=== PATIENT | female | born 1965 | race Caucasian/White ===

== ENCOUNTER 2018-06-21 06:55 | Inpatient (IN) | payer OTHER ==
[2018-06-09 08:55] LABS: HEMATOCRIT 38.8 % (37.0-47.0); HEMOGLOBIN 12.8 gm/dL (12.0-15.0); MCH 29.8 pg (26.0-34.0); MCV 90.3 fL (80.0-100.0); MPV 9.1 fl. (7.2-11.1); RBC 4.3 mil/uL (4.20-5.00); WBC 3.3 thou/uL (4.0-11.0)
[2018-06-09 09:32] LABS: ALBUMIN 3.7 g/dL (3.4-5.0); CALCIUM 8.9 mg/dL (8.5-10.1); CREATININE 0.8 mg/dL (0.6-1.3); POTASSIUM 4.3 mmol/L (3.5-5.1); TOTAL BILIRUBIN 0.3 mg/dL (<0.1-1.0); TOTAL PROTEIN 6.7 g/dL (6.4-8.2)
[2018-06-09 09:42] LABS: URINE CLARITY CLEAR; URINE COLOR YELLOW
[2018-06-09 09:43] LABS: URINE GLUCOSE-RANDOM NEG (Negative); URINE PROTEIN NEG (Negative); URINE SPECIFIC GRAVITY > 1.030 (1.005-1.030)
[2018-06-09 09:44] LABS: URINE BILIRUBIN NEG (Negative); URINE BLOOD NEG (Negative); URINE KETONES NEG (Negative); URINE NITRITE-REFLEX NEGATIVE (Negative); URINE UROBILINOGEN 0.2 E.U./dl (0.2-1.0)
[2018-06-09 09:45] LABS: URINE LEUKOCYTES-REFLEX NEGATIVE (Negative)
[2018-06-09 10:16] LABS: PROTIME 10.7 Seconds (9.20-11.50)
--- NOTE | 2018-06-09 17:03 | EKG ---
[place] [address] ELECTROCARDIOGRAM REPORT Name: BRANDY HAYDEN Room: [facility] IN [facility]#: [id number] Admission: Attend Phys: Pawan Cleaning II Discharge: Date of : 67 Report #: [id number] THIS REPORT FOR: //name// [facility] Test Date: 2018-06-09 Test Time: 09:17:45 Pat Name: BRANDY HAYDEN Department: Room: Gender: F [employer] Utility Worker: : 1965 Requested By: Pawan Cleaning Order Number: [id number] Reading MD: Martinez De Anda Measurements Intervals [place] Rate: P: [place]: QRS: QRSD: T: QT: QTc: Interpretive Statements Normal sinus rhythm Low voltage recorded leads Nonspecific T-wave inversion anterior leads Abnormal EKG No previous ECG available for comparison Electronically Signed On 06-09-2018 17:03:42 CDT by Martinez De Anda [email or web address] <ELECTRONICALLY SIGNED> By: Martinez De Anda MD, [facility] 06/09/18 1703 0917 6 Martinez De Anda MD, FACC /EPI
[~2018-06-21] VITALS: Ht 162.6 cm; Wt 113.4 kg
--- NOTE | ~2018-06-21 | OP ---
[facility] [address] [place] [address] OPERATIVE REPORT Name: BRANDY HAYDEN Room: [address] IN [facility]#: [id number] Admission: 06/21/18 Attend Phys: Ginny Szymanski Discharge: 06/23/18 Date of : 67 Report #: [id number] THIS REPORT FOR: //name// CC: Physician staff DENISE Beltran DATE OF SERVICE: 06/21/2018 PREOPERATIVE DIAGNOSIS: Right knee osteoarthritis. POSTOPERATIVE DIAGNOSIS: Right knee osteoarthritis. PROCEDURE: Right total knee arthroplasty with Navio. ANESTHESIA: General endotracheal. ESTIMATED BLOOD LOSS: 50 mL. SURGEON: Pawan Cleaning II, DO. [employer] SUPERVISOR: ANSELMO Elder DRAINS: Medium Hemovac. COMPLICATIONS: None. CONDITION: The patient stable to recovery room. IMPLANTS: Listed in the operative record and progress note. BRIEF HISTORY: The patient was seen in the preoperative area. Preoperative H and P was performed. Site was marked, questions were answered. Risks and benefits were discussed with the patient in detail about surgery. The patient wished to proceed assuming all risks. OPERATIVE PROCEDURE: The patient was taken to the operative suite, placed supine on the operative table and given appropriate anesthesia. A well-padded tourniquet was applied to the upper thigh, which was inflated to 300 mmHg after gravity exsanguination. The operative knee was sterilely prepped and draped. Surgery began by a midline incision. This was carried down to the subcutaneous tissues. A medial parapatellar arthrotomy was performed and carried down to bone. The patella was then everted and excess soft tissue removed from around the femur. Excess osteophytes were removed. The Navio tracker guides were then placed in the femur and tibia and registered through the [place] [address] OPERATIVE REPORT Name: BRANDY HAYDEN Macario Room: [address]#: [id number] Admission: 06/21/18 Attend Phys: Ginny Szymanski Discharge: 06/23/18 Date of : 67 Report #: [id number] robotic cutting guide was then activated and appropriate drill holes were placed on the femur and tibia. The femoral cutting block was then applied and checked for appropriate cut. The distal cut was made. The 4-in-1 cutting block was then applied, checked for appropriate cut and appropriate cut was made. This excess bone was removed. The tibia was then exposed. Excess meniscus was removed. Retractor was placed on collateral ligaments. The tibial cutting block was then applied and checked with the Akanooio robotic for appropriate alignment and appropriate cut was made. Tibial base plate was then applied, checked for rotational alignment with the drop ro and pinned into appropriate position. Femur was then applied and the box cut was reamed. This was then trialed with the appropriate spacer, which showed excellent fit and fill and excellent stability of the knee joint through all range of motion. The patella was then reamed in appropriate fashion and sized to appropriate size. Three peg holes were drilled. Knee was then trialed and shown to have excellent flexion, extension and excellent tracking of the patella within the groove. These trials were removed. The tibia was punched in appropriate fashion. Bone ends were cleansed with Pulsavac irrigation and cement was mixed and applied to the final implants. These were then malleted in position and held with the knee in extension and compressed to allow the cement to cure. After it cured, excess was removed utilizing [place] and osteotome. The wound was then copiously irrigated. The final spacer was then malleted into position. The tracker guides were then removed as well as the tracker pins. The wound was then copiously irrigated again. Tourniquet was deflated. Hemostasis was obtained with electrocautery and cocktail was injected. PRP gel spread to internal aspects of the knee. Medium Hemovac drain was applied. Capsule was closed with #2 FiberWire and 1 Vicryl in [id number] fashion. Skin was closed with 2-0 Vicryl and running 3-0 Monocryl. Dermabond and sterile dressing applied. Conrado wrap and PolarCare applied. The patient transported to the recovery room in stable condition. Counts were correct throughout the procedure. By: [id number] Cleaning II, DO /nt
[~2018-06-21 06:55] MED LIST: ALEVE220 MG PO; ASPIR 8181 MG PO; AZELASTINE137 MCG/0. INH; BENADRYL25 MG PO; BREO ELLIPTA 11 EACH INH; COLACE100 MG PO; CRESTOR10 MG PO; FLONASE 0.05%50 MCG NASAL; GLUCOTROL5 MG PO; LEVOXYL125 MCG PO; MAGOX 400400 MG PO; NEURONTIN 300300 M1 PO; OMEPRAZOLE 20 M20 M1 PO; PERCOCET PO; PIOGLITAZONE15 MG; PROAIR HFA8.5 GM INH; SINGULAIR 10 MG10 M1 PO; VITAMIN D5000 UNIT PO; XANAX 0.5 MG0.5 MG PO
[2018-06-21 07:37] VITALS: BP 126/58
[2018-06-21 12:15] VITALS: BP 115/55
[2018-06-21 16:35] VITALS: BP 104/65
--- NOTE | 2018-06-21 18:36 | NUR ---
RECEIVED PT FROM PACU ABOUT 1200. PT A/O X'S 4. PT C/O OF RIGHT KNEE PAIN. PRN IV AND PO MEDICATIONS ADMININSTERED PER OCT. LOWEST PAIN RATING SCALE 5/10. PT REPORTS THIS IS A COMFORTABLE NUMBER. PT UP TO BSC 1 TIME. VOIDED. PT USING CPM MACHINE. PT HAD 1 EPISODE OF EMESIS. PT REFUSED REGULAR DIET SMELL MADE HER NAUSEATED.
[2018-06-21 20:00] VITALS: BP 114/61
[2018-06-22 00:11] VITALS: BP 105/70
[2018-06-22 04:00] VITALS: BP 130/62
[2018-06-22 04:58] LABS: HEMOGLOBIN 12.2 gm/dL (12.0-15.0)
--- NOTE | 2018-06-22 05:10 | NUR ---
PATIENT SLOWLY PROGRESSING TOWARDS. TOLERATED CPM WELL LAST NIGHT. LOWEST PAIN RATE WAS 4/10. O2 SAT WNL. TOLERATED BEDSIDE COMMODE WELL REQUIRED MINIMUM ASSISTANCE. PT CURRENTLY SLEEPING. NO VOICED CONCERNS AT THIS TIME. WILL CONTINUE TO MONITOR.
--- NOTE | 2018-06-22 13:34 | NUR ---
PT.UP IN RECLINER. VERY DROWSY. WOKE UP BUT KEPT FALLING BACK TO SLEEP. DISCUSSED DISCHARGE PLANNING. SHE SAID HER S.O.,MIGDALIA, WILL BE WITH HER AT HOME FOR SEVERAL DAYS. SHE HAS A WALKER IN THE CAR. SHE WILL HAVE HER S.O. BRING IN FOR THERAPIST TO LOOK AT. SHE IS NORMALLY INDEPENDENT AT HOME. SHE HAS USED [facility] FOR HOME HEALTH IN THE PAST BUT SAID SHE WOULD USE [facility]. WILL MAKE REFERRAL TO [facility]. [facility] [address] SAID HER COPAY FOR CLAUDIA IS $18. PT.INFORMED. SHE WILL NOT BE DISCHARGED TODAY BUT PROBABLY TOMORROW AND SHE IS AWARE.
[2018-06-22 13:39] VITALS: BP 130/62
--- NOTE | 2018-06-22 15:20 | NUR ---
[employer] MECHANIC SPOKE TO INTAKE WITH [facility] TO INFORM OF THE REFERRAL FOR HH, AND FAXED THE PATIENT'S FACESHEET, AND H&P. INTAKE WITH [facility] INFORMS THAT THEY SHOULD BE ABLE TO ACCEPT THE PATIENT FOR HH SERVICES PENDING REVIEW OF THE INSURANCE. CM WILL REMAIN AVAILABLE TO ASSIST AND FOLLOW NEEDED.
[2018-06-22 15:46] VITALS: BP 94/55
--- NOTE | 2018-06-22 16:46 | NUR ---
O.T. WILL EVALUATE PT. TOMORROW. PER P.T. AND NURSING, PT. HAS BEEN LETHARGIC AND HAVING DIFFICULTY PARTICIPATING IN ADLS.
--- NOTE | 2018-06-22 17:55 | NUR ---
ASSESSMENT CHARTED. AFEBRILE. VITAL SIGNS STABLE. PT HAS BEEN VERY LETHARGIC TODAY AND HAS NOT RECEIVED ANY PAIN MEDICATION SINCE THE AM. BLOOD SUGARS HAVE BEEN IN THE 50'S. PHYSICAN PAGED AND ORDER FOR HYPOGLYCEMIC PROTOCOL WAS FAXED TO PHARMACY. WILL CHECK BLOOD SUGARS AFTER REPLACEMENT MEDS ARE GIVEN.
[2018-06-22 20:00] VITALS: BP 106/58
--- NOTE | 2018-06-23 00:28 | NUR ---
REPORT ON THIS PT WAS GIVEN TO FRANCESCO AVILA AT 0000. PT IS SLEEPING, DENIES PAIN. CPM ATTACHED, [place]ACE [place]RISTIANSON ON. VSS, AFEBRILE. NO COMPLAINTS. SLEEPING.
[2018-06-23 03:57] LABS: HEMATOCRIT 30.2 % (37.0-47.0)
[2018-06-23 04:18] LABS: HEMOGLOBIN 10.2 gm/dL (12.0-15.0)
[2018-06-23 07:55] VITALS: BP 118/57
[2018-06-23] MEDS ORDERED: XARELTO10 MG PO (13:02)
[2018-06-23] MEDS ORDERED: ONDANSETRON HCL4 M2 PO (13:03)
--- NOTE | 2018-06-23 13:33 | NUR ---
PT PAIN MANAGED WELL WITH ORAL PAIN MEDS. PT DENEIS NAUSEA TODAY, TOLERATES DIET. UP WITH SBA ASSIST USING WALKER. PT SENT WITH RX X3. ALL BELONGS SENT WITH PT. PT ACKNOLWEDGED DC INSTRUCTIONS AND MEDICATIONS.
--- NOTE | 2018-06-23 15:27 | NUR ---
TRANSACTIONAL ATTORNEY SPOKE TO INTAKE WITH [facility] AND THEY INFORM THAT THE HH HAS ACCEPTED THE PATIENT. D/C IT NETWORK ARCHITECT FAXED THE PATIENT'S D/C ORDERS TO [facility]. [facility] TO CONTACT THE PATIENT TO SETUP A VISIT. CM WILL REMAIN AVAILABLE TO ASSIST AND FOLLOW NEEDED.
[2018-06-23 15:42] VITALS: BP 130/62
== END 2018-06-23 13:35 | disposition home health service (06) | DRG 470 ==
LOC: M.TBA 06:55 → M.ORTHSURG 06:55 → M.PRE 09:38 → EDSTATUS 10:15 → M.SUR 10:15 → M.PRE 10:20 → M.ORTHSURG 13:49 → M.PRE 15:33 → M.ORTHSURG 06-23 13:35
PROVIDERS: Orthopaedic Surgery; ADMIT Internal Medicine
PROC: 0SRC0J9 Replacement of Right Knee Joint with Synthetic Substitute, Cemented, Open Approach (ICD-10-PCS; principal; 2018-06-21)
DX: M17.11 Unilateral primary osteoarthritis, right knee (principal); Z96.652 Presence of left artificial knee joint; E11.9 Type 2 diabetes mellitus without complications; E78.5 Hyperlipidemia, unspecified; E03.9 Hypothyroidism, unspecified; K21.9 Gastro-esophageal reflux disease without esophagitis; F32.9 Major depressive disorder, single episode, unspecified; J45.909 Unspecified asthma, uncomplicated; M41.9 Scoliosis, unspecified; K58.9 Irritable bowel syndrome, unspecified; G89.29 Other chronic pain; Z90.710 Acquired absence of both cervix and uterus; Z90.49 Acquired absence of other specified parts of digestive tract; Z83.3 Family history of diabetes mellitus; Z79.899 Other long term (current) drug therapy

== ENCOUNTER → 2020-09-02 | Outpatient (CLI) | payer MEDICARE ==
[~2020-09-02] MED LIST changes: +ONDANSETRON HCL4 M2 PO; +XARELTO10 MG PO
== END ==
LOC: M.LAB 09:30
PROVIDERS: ATTEND Orthopaedic Surgery
DX: Z01.812 Encounter for preprocedural laboratory examination (principal); Z20.822 Contact with and (suspected) exposure to COVID-19